=== PATIENT | male | born 1970 | race Caucasian/White ===

== ENCOUNTER 2019-03-12 05:26 | Emergency (ER) | payer OTHER ==
[~2019-03-12] VITALS: Ht 167.6 cm; Wt 84.0 kg
[~2019-03-12 05:26] MED LIST: IBUP-1561 PO
[2019-03-12 05:30] VITALS: BP 132/78; PULSE 63; RESP 17; Ht 167.6 cm; Wt 84.0 kg
== END 2019-03-12 06:59 | disposition home or self-care (01) ==
LOC: FTE 05:26
DX: R30.0 Dysuria (principal); I10 Essential (primary) hypertension
CPT/HCPCS: 74176; 81003; 87086